=== PATIENT | female | born 1930 | race Caucasian/White ===

== ENCOUNTER 2017-08-01 09:02 | Day surgery (SDC) | payer OTHER ==
[~2017-08-01] VITALS: Ht 152.4 cm; Wt 64.6 kg
[~2017-08-01 09:02] MED LIST: AMIT50 PO; AMLO5; ASPI81CH PO; ATOR40TA; ATOR80 PO; CALCAVITDA PO; CEPH500; CIPR500; CIPR500 PO; CLOP75; DIAZIDE; DICL75ER; DOCU100 PO; FURO20 PO; HYDACE5 PO; INDERAL; ISOMON60ER; KEFLEX; LACT; LEVO750; LEVSOD100; LEVSOD100 PO; LISI20; LISI20 PO; LORA.5 PO; METO50; METO50ER PO; METR500; METR500 PO; NAPR500 PO; NITR.4SL; NITR.4SL SL; OMEP20ER; OMEP20ER PO; ONDA4 PO; ONDA4ODT MM; OXYACE5T PO; PROACE50 PO; PROP10; PROP40; RANI150; RESTORIL; RXONDA4ODT MM; SIMV5 PO; SYNTHROID; TEMA30; TEMA30 PO; TRIHYD253A; TRIHYD253B; ZANTAC; [UNRECOGNIZED DRUG - OTHER]; [UNRECOGNIZED DRUG - OTHER]
== END 2017-08-01 13:42 | disposition home or self-care (01) ==
LOC: ORSCSDS 09:02
DX: D50.9 Iron deficiency anemia, unspecified (principal); K44.9 Diaphragmatic hernia without obstruction or gangrene; L83 Acanthosis nigricans; D12.0 Benign neoplasm of cecum; D12.4 Benign neoplasm of descending colon; D12.8 Benign neoplasm of rectum; K64.4 Residual hemorrhoidal skin tags; K64.8 Other hemorrhoids; K57.30 Diverticulosis of large intestine without perforation or abscess without bleeding; I25.810 Atherosclerosis of coronary artery bypass graft(s) without angina pectoris; I10 Essential (primary) hypertension; E03.9 Hypothyroidism, unspecified; E78.00 Pure hypercholesterolemia, unspecified; Z79.82 Long term (current) use of aspirin; Z79.899 Other long term (current) drug therapy
CPT/HCPCS: 88305; 88342; J7120

== ENCOUNTER 2018-07-19 06:40 | Inpatient (IN) | payer OTHER ==
[~2018-07-19] VITALS: Ht 152.4 cm; Wt 66.3 kg
[~2018-07-19 06:40] MED LIST changes: -LEVSOD100 PO; +LEVSOD88 PO; -OMEP20ER PO; +OMEPRAZOLE MAGN20 MG PO
[2018-07-19 07:27] LABS: BASOPHILS ABSOLUTE AUTO 0.06 K/mm3 (0.00-0.23); BASOPHILS PERCENT AUTO 0 % (0-2); EOSINOPHILS ABSOLUTE AUTO 0.07 K/mm3 (0.00-0.68); EOSINOPHILS PERCENT AUTO 1 % (0-6); Hematocrit 40.6 % (33.0-51.0); Hemoglobin 13.2 g/dL (11.5-16.0); IMMATURE GRAN ABSOLUTE AUTO 0.05 K/mm3 (0.00-0.10); IMMATURE GRAN PERCENT AUTO 0 % (0-1); LYMPHOCYTES ABSOLUTE AUTO 0.37 K/mm3 (0.84-5.20); LYMPHOCYTES PERCENT AUTO 3 % (21-46); MONOCYTES ABSOLUTE AUTO 1.01 K/mm3 (0.16-1.47); MONOCYTES PERCENT AUTO 7 % (4-13); Mean Corpuscular HGB 30.3 pg (26.0-34.0); Mean Corpuscular HGB Conc 32.5 g/dL (31.5-36.5); Mean Corpuscular Volume 93 fL (80-100); Mean Platelet Volume 11.6 fL (9.1-12.4); NEUTROPHILS ABSOLUTE AUTO 13.16 K/mm3 (1.96-9.15); NEUTROPHILS PERCENT AUTO 89 % (41-73); Platelet Count 211 K/mm3 (150-400); RDW Coefficient Variation 15.3 % (11.7-14.2); RDW Standard Deviation 52.7 fL (35.1-46.3); Red Blood Cell Count 4.36 M/mm3 (3.80-5.20); White Blood Cell Count 14.72 K/mm3 (4.00-11.30)
[2018-07-19] MEDS ORDERED: Prinivil10 MG PO (07:36)
[2018-07-19] MEDS ORDERED: METO25 PO (07:37)
[2018-07-19] MEDS ORDERED: SIMV40 PO (07:37)
[2018-07-19 07:38] LABS: Albumin, Blood 2.7 g/dL (3.4-5.0); Albumin/Globulin Ratio 0.6 (0.8-1.8); Bilirubin, Total 0.9 mg/dL (0.1-1.0); Bun/Creatinine Ratio 17.7 (12.0-20.0); Calcium, Blood 7.9 mg/dL (8.5-10.1); Creatinine, Blood 1.41 mg/dL (0.40-1.00); Globulin, Blood 4.2 g/dL (2.2-4.0); Potassium, Blood 3.6 mmol/L (3.5-5.5); Total Protein, Blood 6.9 g/dL (6.4-8.2)
[2018-07-19 08:36] LABS: Source, Urine Catheter
[2018-07-19 08:39] LABS: Bilirubin, Urine Neg (Neg); Blood, Urine 3+ (Neg); Glucose Qualitative, Urine Neg (Neg); Ketones, Urine Neg (Neg); Leukocyte Esterase, Urine 3+ (Neg); Nitrite, Urine Pos (Neg); Protein, Urine 2+ (Neg); Specific Gravity, Urine 1.015 (1.003-1.022); Urobilinogen, Urine NORM (Normal)
[2018-07-19 08:52] LABS: Appearance, Urine Hazy (Clear); Color, Urine Yellow (P-Yellow)
[2018-07-19 08:53] LABS: Bacteria Few /hpf; Mucus Light (0-Heavy); Squamous Epithelial Cells Rare /hpf (Few); Transitional Epithelial Cells Few /hpf (0-Rare)
--- NOTE | 2018-07-19 10:43 | NUR ---
ADMIT NOTE- RECIEVED REPORT FROM ED. PT ARRIVED ON MEDICAL UNIT ALERT, ORIENTED AND INDEPENDENT. PT DOES NOT HAVE A LIST OF ACTIVE MEDICATIONS, CALLED [facility] SPOKE TO [facility] IN THE PHARMACY THEY ARE SENDING OVER AN ACTIVE MED LIST NOW. WILL CONT ADMIT PROCESS.
--- NOTE | 2018-07-19 18:21 | NUR ---
SHIFT SUMMARY- PT HAS SLEPT MOST OF THE TIME SINCE ADMIT SHE HAD ONE INCONTINENT EPISODE OF URINE, PT STATED HER PAIN WAS TOO BAD TO GET UP. MEDICATED WITH ZOFRAN AND TYLENOL AND THEN FENTANYL WHEN THE TYLENOL HAD NO EFFECT. PT STATED PAIN 5/10 AFTER THE FENTANYL. IVF STARTED AT THAT TIME AND IS CURRENTLY RUNNING AT 75ML/HR.
--- NOTE | 2018-07-19 21:29 | NUR ---
CRITICAL LAB VALUE: POSITIVE BLOOD CULTURE IN ONE BOTTLE: GRAM NEGATIVE BACILLI. REPORTED TO DR MIDDLETON, NO NEW ORDERS AT THIS TIME
--- NOTE | 2018-07-20 00:25 | NUR ---
Critical lab value: Second set of blood cultures, 1 bottle returned with Gram Negative Bacilli. MD already notified of previous results, discussed with Charge Nurse and since these results are identical to the previous Critical Lab Values during this shift, it is not necessary to report this to the MD again. Will continue to monitor.
[2018-07-20 05:03] LABS: BASOPHILS ABSOLUTE AUTO 0.05 K/mm3 (0.00-0.23); BASOPHILS PERCENT AUTO 0 % (0-2); EOSINOPHILS ABSOLUTE AUTO 0.01 K/mm3 (0.00-0.68); EOSINOPHILS PERCENT AUTO 0 % (0-6); Hematocrit 36.5 % (33.0-51.0); Hemoglobin 11.7 g/dL (11.5-16.0); IMMATURE GRAN PERCENT AUTO 1 % (0-1); LYMPHOCYTES ABSOLUTE AUTO 0.52 K/mm3 (0.84-5.20); LYMPHOCYTES PERCENT AUTO 3 % (21-46); MONOCYTES ABSOLUTE AUTO 1.56 K/mm3 (0.16-1.47); MONOCYTES PERCENT AUTO 9 % (4-13); Mean Corpuscular HGB 30.5 pg (26.0-34.0); Mean Corpuscular HGB Conc 32.1 g/dL (31.5-36.5); Mean Corpuscular Volume 95 fL (80-100); Mean Platelet Volume 11.9 fL (9.1-12.4); NEUTROPHILS ABSOLUTE AUTO 15.09 K/mm3 (1.96-9.15); NEUTROPHILS PERCENT AUTO 87 % (41-73); Platelet Count 193 K/mm3 (150-400); RDW Coefficient Variation 15.5 % (11.7-14.2); RDW Standard Deviation 54.8 fL (35.1-46.3); Red Blood Cell Count 3.84 M/mm3 (3.80-5.20); White Blood Cell Count 17.33 K/mm3 (4.00-11.30)
--- NOTE | 2018-07-20 05:04 | NUR ---
A/O, FEBRILE, 1PA TO BSC, WEAKER TODAY THAN YESTERDAY, NS @ 75 ML/HR, 2 L NC, 20G R FA, 20G L AC, POSTIVE UA, INCONT, VERY PAINFUL, CLEAR LIQUID DIET, LIVES WITH DAUGHTER
[2018-07-20 05:38] LABS: Albumin, Blood 2.2 g/dL (3.4-5.0); Albumin/Globulin Ratio 0.6 (0.8-1.8); Bilirubin, Total 0.4 mg/dL (0.1-1.0); Bun/Creatinine Ratio 16.5 (12.0-20.0); Calcium, Blood 7.6 mg/dL (8.5-10.1); Creatinine, Blood 1.27 mg/dL (0.40-1.00); Magnesium, Blood 1.6 mg/dL (1.6-2.4); Potassium, Blood 3.6 mmol/L (3.5-5.5); Total Protein, Blood 6.2 g/dL (6.4-8.2)
--- NOTE | 2018-07-20 10:19 | NUR ---
ASSUMED CARE OF PT- *LATE ENTRY* BEDSIDE REPORT COMPLETE WITH NIGHT RN CHRISTINA. PER REPORT PT HAD ONE EPISODE OF FEVER LAST NIGHT, MEDICATED WITH TYLENOL. MORNING VITALS SHOW TEMP 99.1 ADMINISTERED TYLENOL AGAIN RECHECK TEMP 98.3. PT STATED PAIN IS MANAGABLE AT 1000 RATED 2/10. PT STATES PAIN INCREASES WITH MOVEMENT.
--- NOTE | 2018-07-20 10:58 | NUR ---
ON NURSE ROUNDING PT STATED THAT HER STOMACH WAS STARTING TO FEEL "TOPSY TURVEY" PT REQUESTING NAUSEA MEDICATION, ALREADY ADMINISTERED IV ZOFRAN AT 0915. WILL SPEAK TO DR ABOUT OPTIONS.
[2018-07-20 14:03] LABS: Source, Urine Catheter
[2018-07-20 14:07] LABS: Appearance, Urine Clear (Clear); Bilirubin, Urine Neg (Neg); Blood, Urine 1+ (Neg); Color, Urine Yellow (P-Yellow); Glucose Qualitative, Urine Neg (Neg); Ketones, Urine Neg (Neg); Leukocyte Esterase, Urine 2+ (Neg); Nitrite, Urine Neg (Neg); Protein, Urine 2+ (Neg); Specific Gravity, Urine 1.015 (1.003-1.022); Urobilinogen, Urine NORM (Normal)
[2018-07-20 14:41] LABS: Bacteria Not Seen /hpf; Red Blood Cells, Urine Not Seen /hpf (0-2); Squamous Epithelial Cells Not Seen /hpf (Few)
--- NOTE | 2018-07-20 17:06 | NUR ---
AFTER CATHETER PLACEMENT PT FELT MUCH BETTER (PER PT STATEMENT) JUST RECENTLY SHE BEGAN TO C/O NAUSEA MEDICATED PER EMAR WITH ZOFRAN. PT STILL C/O SOME MILD NAUSEA, NO EMESIS AT THIS TIME. PT PAIN HAS RETURNED WELL WILL SEE ABOUT PAIN MEDS SHORTLY.
--- NOTE | 2018-07-20 18:36 | NUR ---
SHIFT SUMMARY- PT HAD A VALDERRAMA PLACED TODAY. C/O PAIN MEDICATED WITH IV FENTANYL AND TYLENOL. IV ZOFRAN GIVEN AND NOT EFFECTIVE. PT STATED SHE FEELS SO MISERABLE SHE "WANTS TO GO TO SLEEP AND NOT WAKE UP." CALLED DR BRAGG, NEW ORDER FOR IV PHENEGREN RECIEVED AND ADMINISTERED. PT THOUGHT SHE HAD A BM STAFF ROLLED HER REDNESS NOTED ON COCCYX, REPOSITIONED WITH A PILLOW UNDER RIGHT HIP.
--- NOTE | 2018-07-21 05:19 | NUR ---
VSS, AFEBRILE, A/O, VERY WEAK, SBA TO BSC, CHILLS AT TIMES, NS @ 75 ML/HR, 2L NC, L AC IS A FIELDSTART, 20G R FA, JANNIE FOR RETENTION. PMHX: CKD, HTN, CABG, THYROIDECTOMY, KAILYN. POSITIVE US, PAINFUL AND NAUSEATED. WATCH HER CLOSELY FOR POSSIBLE SUDDEN DECLINE.
--- NOTE | 2018-07-21 11:23 | NUR ---
PATIENT CARE ON 07/22/18 Patient gave permission for student to provide care on 07/22/18 from 0630 to 1200.
[2018-07-21 12:38] LABS: BASOPHILS ABSOLUTE AUTO 0.04 K/mm3 (0.00-0.23); BASOPHILS PERCENT AUTO 0 % (0-2); EOSINOPHILS ABSOLUTE AUTO 0.07 K/mm3 (0.00-0.68); EOSINOPHILS PERCENT AUTO 1 % (0-6); Hematocrit 39.3 % (33.0-51.0); Hemoglobin 12.7 g/dL (11.5-16.0); IMMATURE GRAN PERCENT AUTO 1 % (0-1); LYMPHOCYTES ABSOLUTE AUTO 1.23 K/mm3 (0.84-5.20); LYMPHOCYTES PERCENT AUTO 8 % (21-46); MONOCYTES ABSOLUTE AUTO 1.58 K/mm3 (0.16-1.47); MONOCYTES PERCENT AUTO 10 % (4-13); Mean Corpuscular HGB Conc 32.3 g/dL (31.5-36.5); Mean Corpuscular Volume 93 fL (80-100); Mean Platelet Volume 11.4 fL (9.1-12.4); NEUTROPHILS ABSOLUTE AUTO 12.38 K/mm3 (1.96-9.15); NEUTROPHILS PERCENT AUTO 80 % (41-73); Platelet Count 230 K/mm3 (150-400); RDW Coefficient Variation 15.6 % (11.7-14.2); RDW Standard Deviation 53.4 fL (35.1-46.3); Red Blood Cell Count 4.23 M/mm3 (3.80-5.20)
[2018-07-21 13:03] LABS: Albumin, Blood 2.1 g/dL (3.4-5.0); Albumin/Globulin Ratio 0.5 (0.8-1.8); Bilirubin, Total 0.3 mg/dL (0.1-1.0); Bun/Creatinine Ratio 15.8 (12.0-20.0); Calcium, Blood 7.8 mg/dL (8.5-10.1); Creatinine, Blood 1.01 mg/dL (0.40-1.00); Globulin, Blood 4.3 g/dL (2.2-4.0); Potassium, Blood 3.6 mmol/L (3.5-5.5); Total Protein, Blood 6.4 g/dL (6.4-8.2)
--- NOTE | 2018-07-21 19:58 | NUR ---
SHIFT SUMMARY: PT IS A&O. REPORT OF NAUSEA X2 T/O DAY; PT REPORTS RELIEF WITH IV ZOFRAN. SHE REFUSED PAIN MEDICATION T/O DAY; EDUCATED ON IMPORTANCE OF MOVEMENT AND OOB. STS SHE IS "TOO PAINFUL TO MOVE." THIS EVENING SHE WAS AGREEABLE TO TORADOL; AFTER DOSE GIVEN SHE APPEARS TO BE SLEEPING. NO S/SX OF DISCOMFORT. SHE REFUSED BREAKFAST AND DINNER. REPORT GIVEN TO SAMREEN BHAKTA.
[2018-07-22 04:58] LABS: BASOPHILS ABSOLUTE AUTO 0.04 K/mm3 (0.00-0.23); BASOPHILS PERCENT AUTO 0 % (0-2); EOSINOPHILS ABSOLUTE AUTO 0.35 K/mm3 (0.00-0.68); EOSINOPHILS PERCENT AUTO 3 % (0-6); Hematocrit 35.8 % (33.0-51.0); Hemoglobin 11.6 g/dL (11.5-16.0); IMMATURE GRAN ABSOLUTE AUTO 0.17 K/mm3 (0.00-0.10); IMMATURE GRAN PERCENT AUTO 2 % (0-1); LYMPHOCYTES ABSOLUTE AUTO 1.47 K/mm3 (0.84-5.20); LYMPHOCYTES PERCENT AUTO 13 % (21-46); MONOCYTES ABSOLUTE AUTO 1.24 K/mm3 (0.16-1.47); MONOCYTES PERCENT AUTO 11 % (4-13); Mean Corpuscular HGB 30.7 pg (26.0-34.0); Mean Corpuscular HGB Conc 32.4 g/dL (31.5-36.5); Mean Corpuscular Volume 95 fL (80-100); Mean Platelet Volume 11.6 fL (9.1-12.4); NEUTROPHILS ABSOLUTE AUTO 7.74 K/mm3 (1.96-9.15); NEUTROPHILS PERCENT AUTO 70 % (41-73); Platelet Count 220 K/mm3 (150-400); RDW Coefficient Variation 15.5 % (11.7-14.2); RDW Standard Deviation 54.1 fL (35.1-46.3); Red Blood Cell Count 3.78 M/mm3 (3.80-5.20); White Blood Cell Count 11.01 K/mm3 (4.00-11.30)
--- NOTE | 2018-07-22 05:40 | NUR ---
*SHIFT SUMMARY* PATIENT IS ALERT AND ORIENTED TO SELF AND PLACE. NO COMPLAINTS OF PAIN THROUGHOUT THE NIGHT. TORADOL ORDER CHANGED FROM SCHEDULED TO PRN SEE EMAR. JANNIE DRAINING WELL. NO BM THROUGHOUT THE NIGHT. CALL LIGHT WITHIN REACH, BED LOWERED AND LOCKED. NO NEW ACUTE CHANGES TO PATIENTS STATUS, SHE REPORTS SHE FEELS MUCH BETTER THAN YESTERDAY.
[2018-07-22 05:46] LABS: Albumin, Blood 1.8 g/dL (3.4-5.0); Albumin/Globulin Ratio 0.5 (0.8-1.8); Bilirubin, Total 0.3 mg/dL (0.1-1.0); Bun/Creatinine Ratio 19.1 (12.0-20.0); Calcium, Blood 7.5 mg/dL (8.5-10.1); Creatinine, Blood 1.1 mg/dL (0.40-1.00); Globulin, Blood 3.7 g/dL (2.2-4.0); Potassium, Blood 3.4 mmol/L (3.5-5.5); Total Protein, Blood 5.5 g/dL (6.4-8.2)
--- NOTE | 2018-07-22 08:41 | NUR ---
PT gave me verbal consent to help care for them on 07/23/18.
--- NOTE | 2018-07-22 16:56 | NUR ---
SHIFT SUMMARY PT HAS HAD NO ACUTE CHANGES THIS SHIFT, MEDICATED 1X FOR PAIN, PT HAS HAD NO OTHER COMPLAINTS AND APPEARS TO BE SLEEPING AT THIS TIME, WILL CONT TO MONITOR UNTIL REPORT GIVEN TO RAHEEM RN.
--- NOTE | 2018-07-23 02:25 | NUR ---
PT AWOKE FEELING VERY NAUSEATED. PT DID VOMIT TWICE. MEDICATED FOR NAUSEA ORDERED SEE EMAR. PT STATES SHE FEELS LIKE SHE HAS A FEVER. ENGRAVER SEALS AT BEDSIDE CHECKING VITAL SIGNS. TEMP 99.2 ALL OTHER VITALS WNL. PT STATES THE NAUSEA IS BETTER NOW BUT IS HAVING PAIN. WILL MEDICATE ORDERED.
--- NOTE | 2018-07-23 05:43 | NUR ---
*SHIFT SUMMARY* PATIENT IS ALERT AND ORIENTED YET CONFUSED AT TIMES. PATIENT HAS BEEN IN BED DURING MY SHIFT. PATIENT SLEPT MOST OF THE NIGHT. SHE WOKE UP AROUND 0200 AND HAD EMESIS, SEE PREVIOUS NOTE. PATIENT CONTINUED TO HAVE PAIN AFTER BEING MEDICATED PRIOR. PT WAS MEDICATED WITH FENTANYL ORDERED SEE EMAR. PATIENT SINCE THEN HAS BEEN ASLEEP AND LAYING ON LEFT SIDE. NO FURTHER COMPLAINTS OF NAUSEA OR PAIN. CALL LIGHT WITHIN REACH, BED LOWERED AND LOCKED. RESPIRATIONS EQUAL AND UNLABORED. VITAL SIGNS STABLE
[2018-07-23 08:32] LABS: BASOPHILS ABSOLUTE AUTO 0.06 K/mm3 (0.00-0.23); BASOPHILS PERCENT AUTO 1 % (0-2); EOSINOPHILS ABSOLUTE AUTO 0.29 K/mm3 (0.00-0.68); EOSINOPHILS PERCENT AUTO 2 % (0-6); Hematocrit 37.3 % (33.0-51.0); Hemoglobin 12.1 g/dL (11.5-16.0); IMMATURE GRAN ABSOLUTE AUTO 0.28 K/mm3 (0.00-0.10); IMMATURE GRAN PERCENT AUTO 2 % (0-1); LYMPHOCYTES ABSOLUTE AUTO 1.39 K/mm3 (0.84-5.20); LYMPHOCYTES PERCENT AUTO 11 % (21-46); MONOCYTES ABSOLUTE AUTO 1.04 K/mm3 (0.16-1.47); MONOCYTES PERCENT AUTO 8 % (4-13); Mean Corpuscular HGB 30.4 pg (26.0-34.0); Mean Corpuscular HGB Conc 32.4 g/dL (31.5-36.5); Mean Corpuscular Volume 94 fL (80-100); Mean Platelet Volume 11.5 fL (9.1-12.4); NEUTROPHILS ABSOLUTE AUTO 10.05 K/mm3 (1.96-9.15); NEUTROPHILS PERCENT AUTO 77 % (41-73); Platelet Count 255 K/mm3 (150-400); RDW Coefficient Variation 15.3 % (11.7-14.2); Red Blood Cell Count 3.98 M/mm3 (3.80-5.20); White Blood Cell Count 13.11 K/mm3 (4.00-11.30)
[2018-07-23 08:46] LABS: Albumin, Blood 1.9 g/dL (3.4-5.0); Anion Gap 8 mmol/L (6-16); Blood Urea Nitrogen 17 mg/dL (8-24); Bun/Creatinine Ratio 18.8 (12.0-20.0); CO2, Blood 24 mmol/L (21-32); Calcium, Blood 7.9 mg/dL (8.5-10.1); Chloride, Blood 112 mmol/L (98-108); Creatinine, Blood 0.91 mg/dL (0.40-1.00); Glomerular Filtration Rate >60 (60-); Glucose, Blood 93 mg/dL (70-99); Magnesium, Blood 1.4 mg/dL (1.6-2.4); Phosphorus, Blood 2.3 mg/dL (2.5-4.9); Potassium, Blood 3.3 mmol/L (3.5-5.5); Sodium, Blood 144 mmol/L (136-145)
--- NOTE | 2018-07-23 10:44 | NUR ---
I had my instructer Mervat Baer Rn help me administer heparin and Carol Diaz verified the dose of 5,000 unit/0.5 ml.
--- NOTE | 2018-07-23 16:24 | NUR ---
SHIFT SUMMARY PT HAS HAD NO ACUTE CHANGES THIS SHIFT, MEDICATED PER MAR FOR PAIN, NO OTHER COMPLAINTS. PT HAS BEEN UP TO BSC & RECLINER BOTH 1X THIS SHIFT, WAS ABLE TO TOLERATE CHAIR FOR 30 MINS. PT BEDRESTING AT THIS TIME W/FAMILY AT BEDSIDE, WILL CONT TO MONITOR UNTIL REPORT GIVEN TO NOC RN.
--- NOTE | 2018-07-24 05:01 | NUR ---
87 YEAR OLD FEMALE WITH SEPSIS AND PYLONEPHRITIS CONTINUES ON ANTIBIOTIC THERAPY TO TREAT. UP WITH 1 ASSIST TO BEDSIDE COMMODE AFTER VALDERRAMA DC. DENIES ACUTE PAIN WITH URINATION. CONTINUES ON CLEAR LIQUID DIET. DENIES NAUSEA. LIVES WITH DAUGHTER. WANTS TO DC HOME ON DC. TAKING ENSURE CLEAR. BOWELS ARE MOVING, BOWEL CARE CONTINUES
[2018-07-24 05:22] LABS: Hemoglobin 11.8 g/dL (11.5-16.0); Mean Corpuscular HGB 30.5 pg (26.0-34.0); Mean Corpuscular HGB Conc 32.8 g/dL (31.5-36.5); Mean Corpuscular Volume 93 fL (80-100); Mean Platelet Volume 12.1 fL (9.1-12.4); Platelet Count 277 K/mm3 (150-400); RDW Coefficient Variation 15.4 % (11.7-14.2); RDW Standard Deviation 52.5 fL (35.1-46.3); Red Blood Cell Count 3.87 M/mm3 (3.80-5.20); White Blood Cell Count 15.75 K/mm3 (4.00-11.30)
[2018-07-24 06:02] LABS: Albumin, Blood 1.9 g/dL (3.4-5.0); Anion Gap 8 mmol/L (6-16); Blood Urea Nitrogen 13 mg/dL (8-24); Bun/Creatinine Ratio 15.3 (12.0-20.0); CO2, Blood 24 mmol/L (21-32); Calcium, Blood 7.7 mg/dL (8.5-10.1); Chloride, Blood 109 mmol/L (98-108); Creatinine, Blood 0.85 mg/dL (0.40-1.00); Glomerular Filtration Rate >60 (60-); Glucose, Blood 108 mg/dL (70-99); Magnesium, Blood 2.1 mg/dL (1.6-2.4); Phosphorus, Blood 3.4 mg/dL (2.5-4.9); Potassium, Blood 3.6 mmol/L (3.5-5.5); Sodium, Blood 141 mmol/L (136-145)
--- NOTE | 2018-07-24 18:36 | NUR ---
PT. UP IN CHAIR AT THIS TIME. IS REPORTING NAUSEA ONCE AGAIN AND GAGGING. ZOFRAN GIVEN. DISCUSSED WITH DR. LAZARO THE POSSIBILITY HER HIATAL HERNIA MIGHT BE SLIDING ON HER. PT. SAID THE CL WERE NAUSEATING HER. EVEN AFTER ZOFRAN GIVEN PT. STILL GAGGING AND BELCHING. PT. DID GET UP AND AMBULATE IN SAEED WITH P.T. USING A FWW. TOLERATED WELL. PT. NOW REQUESTING PAIN MEDS, WILL GIVE HER TYLENOL.
--- NOTE | 2018-07-25 02:40 | NUR ---
elderly Female unable to void this shift bladder scan done 679 urine retaine and unable to void. DR Pagan updated and order to straight cath now and bladder scan 6 hours after scan put in . Will straight cath now. PT has pylonephritis and having rt flank pain .
--- NOTE | 2018-07-25 03:46 | NUR ---
straight cath for 650 ml clear yellow urine. pt had order to hold ultram so tylenol 650 mg po was given. tolerated st cath well expressed decreased pain and bladder pressure.
--- NOTE | 2018-07-25 08:36 | NUR ---
PATIENT DID NOT WANT TO EAT BREAKFAST THIS MORNING. TRAY WAS BROUGHT INTO ROOM AND PATIENT STATED SHE WAS NOT HUNGRY AND DID NOT WANT TO EAT. I ASKED PATIENT IF SHE WANTED ME TO LEAVE TRAY AND SHE DECLINED. TRAY WAS REMOVED FROM ROOM. PATIENT WAS INFORMED TO LET ME KNOW IF SHE GETS HUNGRY AND I WILL GET HER SOMETHING TO EAT. RN NOTIFIED.
[2018-07-25 09:55] LABS: Hemoglobin 11.6 g/dL (11.5-16.0); Mean Corpuscular HGB 30.7 pg (26.0-34.0); Mean Corpuscular HGB Conc 33.1 g/dL (31.5-36.5); Mean Corpuscular Volume 93 fL (80-100); Mean Platelet Volume 11.3 fL (9.1-12.4); NRBC ABSOLUTE 0.02 K/mm3 (0.00-0.02); NRBC Auto 0.1 /100 WBC (0.0-0.2); Platelet Count 322 K/mm3 (150-400); RDW Coefficient Variation 15.4 % (11.7-14.2); Red Blood Cell Count 3.78 M/mm3 (3.80-5.20); White Blood Cell Count 14.51 K/mm3 (4.00-11.30)
[2018-07-25 10:11] LABS: Anion Gap 8 mmol/L (6-16); Blood Urea Nitrogen 13 mg/dL (8-24); Bun/Creatinine Ratio 14.7 (12.0-20.0); CO2, Blood 26 mmol/L (21-32); Calcium, Blood 7.9 mg/dL (8.5-10.1); Chloride, Blood 108 mmol/L (98-108); Creatinine, Blood 0.88 mg/dL (0.40-1.00); Glomerular Filtration Rate >60 (60-); Glucose, Blood 96 mg/dL (70-99); Potassium, Blood 3.4 mmol/L (3.5-5.5); Sodium, Blood 142 mmol/L (136-145)
[2018-07-25 10:39] LABS: BASOPHILS PERCENT MAN 0 % (0-2); EOSINOPHILS ABSOLUTE MAN 0.43 K/mm3 (0.00-0.68); EOSINOPHILS PERCENT MAN 3 % (0-6); LYMPHOCYTES ABSOLUTE MAN 1.01 K/mm3 (0.84-5.20); LYMPHOCYTES PERCENT MAN 7 % (21-46); METAMYELOCYTE ABSOLUTE MAN 0.43 K/mm3 (0.00-0.00); METAMYELOCYTE PERCENT MAN 3 % (0-0); MONOCYTES ABSOLUTE MAN 1.16 K/mm3 (0.16-1.47); MONOCYTES PERCENT MAN 8 % (4-13); NEUTROPHILS ABSOLUTE MAN 11.46 K/mm3 (1.96-9.15); SEG NEUTROPHILS PERCENT MAN 79 % (41-73); TOTAL CELLS COUNTED 100
[2018-07-25 12:05] LABS: Source, Urine Catheter
[2018-07-25 12:15] LABS: Bilirubin, Urine Neg (Neg); Blood, Urine 1+ (Neg); Glucose Qualitative, Urine Neg (Neg); Ketones, Urine 1+ (Neg); Leukocyte Esterase, Urine Neg (Neg); Nitrite, Urine Neg (Neg); Protein, Urine Neg (Neg); Specific Gravity, Urine 1.015 (1.003-1.022); Urobilinogen, Urine NORM (Normal)
[2018-07-25 12:49] LABS: Appearance, Urine Clear (Clear); Color, Urine Yellow (P-Yellow)
[2018-07-25 13:29] LABS: Bacteria Few /hpf; Red Blood Cells, Urine 0-2 /hpf (0-2); Squamous Epithelial Cells Rare /hpf (Few)
--- NOTE | 2018-07-25 18:31 | NUR ---
SHIFT SUMMARY- PT C/O R SIDED PAIN AND NAUSEA. MEDS GIVEN PER EMAR. DENIES SOB. RESP E/U ON RA. GI CONSULTED AND DR. LIM IN TO SEE PT TODAY. US OF ABDOMEN ORDERED. VALDERRAMA CATH PLACED. PATENT AND DRAINING CLEAR PALE YELLOW URINE. FAMILY IN TO VISIT PT. NO OTHER SIGNIFICANT CHANGES THIS SHIFT.
[2018-07-26 05:11] LABS: Hematocrit 36.5 % (33.0-51.0); Hemoglobin 11.9 g/dL (11.5-16.0); Mean Corpuscular HGB 30.1 pg (26.0-34.0); Mean Corpuscular HGB Conc 32.6 g/dL (31.5-36.5); Mean Corpuscular Volume 92 fL (80-100); Mean Platelet Volume 11.6 fL (9.1-12.4); Platelet Count 362 K/mm3 (150-400); RDW Coefficient Variation 15.4 % (11.7-14.2); RDW Standard Deviation 51.8 fL (35.1-46.3); Red Blood Cell Count 3.95 M/mm3 (3.80-5.20); White Blood Cell Count 14.26 K/mm3 (4.00-11.30)
--- NOTE | 2018-07-26 05:36 | NUR ---
SHIFT SUMMARY PT SLEPT WELL T/O NIGHT, WOKE UP AROUND 0130 STATING SHE FELT CONFUSED BUT WAS AOX4. SALSA DANCE INSTRUCTOR INFORMED ME PT HAD 1 YELLOW, FOUL SMELLING, LIQUID BM BUT HAS NO FURTHER BM SINCE. ABD IS TENDER TO PALPATION & PAINFUL IN UPPER QUADRANTS RAIDIATING TO SIDES. PT DENIES SOB & N/V. PT REPORTED 5/10 LOWER BACK PAIN THIS AM & WAS MEDICATED W/TYLENOL PER ORDERS. JANNIE IS PATENT & DRAINING. CALL LIGHT IS IN REACH & BED IS IN LOWEST POSITION.
[2018-07-26 05:44] LABS: Bun/Creatinine Ratio 12.6 (12.0-20.0); Calcium, Blood 7.9 mg/dL (8.5-10.1); Creatinine, Blood 0.96 mg/dL (0.40-1.00); Potassium, Blood 3.7 mmol/L (3.5-5.5)
[2018-07-26 05:49] LABS: BASOPHILS PERCENT MAN 0 % (0-2); EOSINOPHILS ABSOLUTE MAN 0.14 K/mm3 (0.00-0.68); EOSINOPHILS PERCENT MAN 1 % (0-6); LYMPHOCYTES ABSOLUTE MAN 1.85 K/mm3 (0.84-5.20); LYMPHOCYTES PERCENT MAN 13 % (21-46); MONOCYTES ABSOLUTE MAN 1.28 K/mm3 (0.16-1.47); MONOCYTES PERCENT MAN 9 % (4-13); NEUTROPHILS ABSOLUTE MAN 10.98 K/mm3 (1.96-9.15); SEG NEUTROPHILS PERCENT MAN 77 % (41-73); TOTAL CELLS COUNTED 100
--- NOTE | 2018-07-26 14:53 | NUR ---
REPORT GIVEN TO CIRA JEAN-BAPTISTE AT 1155 WHO ASSUMED CARE AT THAT TIME
--- NOTE | 2018-07-26 17:04 | NUR ---
SUMMARY ASSUMED PT CARE APPROX NOON TODAY. SHE IS A/O X3, SHE STATE R HIP/SIDE PAIN, DR LAZARO ORDER TYLENOL SCHEDULED FOR PAIN RELIEF/CONTROL. KPAD PROVIDED PRN. ORDER XRAY R HIP/PELVIS. PT HAS INCREASED PAIN WITH WT BRG RLE. DX PYELONEPHRITIS, IV ANTIBX CONTINUE. VALDERRAMA CATH PATENT, AVELINO CLEAR LIGHT YELLOW URINE. WBC ELEVATED HOWEVER IMPROVING @ 14.2, VSS NO FEVER TODAY. SHE IS PLEASANT/COOPERATIVE. MULT SUPPORTIVE FAMILY @ BEDSIDE T/O DAY.
--- NOTE | 2018-07-27 04:23 | NUR ---
SHIFT SUMMARY PT SLEPT WELL T/O NIGHT. NO ACUTE CHANGES THIS SHIFT. VSS. AOX4, SLOW TO RESPOND. DENIES N/V OR SOB. DENIES ABD TENDERNESS W/PALPATION. REPORTS 5/10 R HIP/SIDE PAIN, MEDICATED 1X W/PRN TYLENOL & 1X W/SCHEDULED TYLENOL PER ORDERS. JANNIE IS PATENT & DRAINING CLEAR LIGHT YELLOW URINE. PT HAD 1 SMALL BROWN FORMED BM. CALL LIGHT IS IN REACH & I WILL CONT TO MONITOR PT UNTIL DAY SHIFT RN ASSUMES CARE.
[2018-07-27 05:01] LABS: Hematocrit 37.8 % (33.0-51.0); Hemoglobin 12.4 g/dL (11.5-16.0); Mean Corpuscular HGB 30.6 pg (26.0-34.0); Mean Corpuscular HGB Conc 32.8 g/dL (31.5-36.5); Mean Corpuscular Volume 93 fL (80-100); Mean Platelet Volume 11.7 fL (9.1-12.4); NRBC ABSOLUTE 0.02 K/mm3 (0.00-0.02); NRBC Auto 0.2 /100 WBC (0.0-0.2); Platelet Count 408 K/mm3 (150-400); RDW Coefficient Variation 15.4 % (11.7-14.2); RDW Standard Deviation 52.6 fL (35.1-46.3); Red Blood Cell Count 4.05 M/mm3 (3.80-5.20); White Blood Cell Count 12.12 K/mm3 (4.00-11.30)
[2018-07-27 05:17] LABS: Anion Gap 8 mmol/L (6-16); Blood Urea Nitrogen 15 mg/dL (8-24); CO2, Blood 29 mmol/L (21-32); Chloride, Blood 104 mmol/L (98-108); Creatinine, Blood 0.88 mg/dL (0.40-1.00); Glomerular Filtration Rate >60 (60-); Glucose, Blood 119 mg/dL (70-99); Potassium, Blood 3.6 mmol/L (3.5-5.5); Sodium, Blood 141 mmol/L (136-145)
--- NOTE | 2018-07-27 17:41 | NUR ---
PATIENT DID NOT WANT TO EAT DINNER THIS SHIFT, PATIENT WAS NOT FEELING WELL EARLIER AND DID NOT FEEL LIKE EATING. I OFFERED JELLO, SOUP AND OTHER LIGHT FOODS AND PATIENT DECLINED. TRAY WAS REMOVED. RN NOTIFIED.
--- NOTE | 2018-07-27 19:37 | NUR ---
summary PT CONTINUED TO HAVE PAIN/DISCOMFORT R HIP/SIDE, DR REVIEW XRAY RESULTS, ORDER LIDOCAINE PATCH. PT STATE BETTER RELIEF THIS AM IMMEDIATELY AFTER PLACED HOWEVER LATER AFTER SHE HAD BEEN UP IN CHAIR APPROX 1/2 HR SHE BECAME VERY PAINFUL AGAIN, ASSISTED BACK TO BED & HAS DECLINED UP SINCE, STATE TOO MUCH DISCOMFORT WHEN UP. SCHEDULED & PRN TYLENOL GIVEN GET PAIN BACK UNDER CONTROL. POOR APPETITE CONTINUES, DR ORDER CALORIE COUNT, RESPIRATORY TECHNICIAN IN TO SEE PT TO ASSIST WITH MENU. PT HAD NAUSEA & EMESIS AFTER LUNCH, PRN ZOFRAN GIVEN. SHE DECLINED DINNER, STATE NOT READY TO TRY & EAT YET AFTER NAUSEA THIS AFTERNOON. CLINIMIX CONTINUES @ 75 ML/HR. VSS.
[2018-07-28 05:11] LABS: Hematocrit 39.3 % (33.0-51.0); Hemoglobin 12.7 g/dL (11.5-16.0); Mean Corpuscular HGB 30.2 pg (26.0-34.0); Mean Corpuscular HGB Conc 32.3 g/dL (31.5-36.5); Mean Corpuscular Volume 93 fL (80-100); Mean Platelet Volume 11.8 fL (9.1-12.4); Platelet Count 461 K/mm3 (150-400); RDW Coefficient Variation 15.7 % (11.7-14.2); RDW Standard Deviation 52.7 fL (35.1-46.3); Red Blood Cell Count 4.21 M/mm3 (3.80-5.20); White Blood Cell Count 13.86 K/mm3 (4.00-11.30)
[2018-07-28 05:40] LABS: Albumin, Blood 2.2 g/dL (3.4-5.0); Anion Gap 7 mmol/L (6-16); Blood Urea Nitrogen 18 mg/dL (8-24); CO2, Blood 29 mmol/L (21-32); Calcium, Blood 8.1 mg/dL (8.5-10.1); Chloride, Blood 105 mmol/L (98-108); Glucose, Blood 116 mg/dL (70-99); Phosphorus, Blood 3.3 mg/dL (2.5-4.9); Potassium, Blood 3.7 mmol/L (3.5-5.5); Sodium, Blood 141 mmol/L (136-145)
[2018-07-28 06:53] LABS: Bun/Creatinine Ratio 23.1 (12.0-20.0); Creatinine, Blood 0.78 mg/dL (0.40-1.00); Glomerular Filtration Rate >60 (60-)
--- NOTE | 2018-07-28 07:41 | NUR ---
SHIFT SUMMARY PT HAS BEEN AWAKE ON/OFF T/O NIGHT. AOX3, FORGETFUL @TIMES. REPORTS 6/10 PAIN IN R. SIDE, MEDICATED W/TYLENOL PER ORDERS. PT REPORTED NAUSEA THIS AM AROUND 0200, MEDICATED W/ZOFRAN PER ORDERS. PT STILL REPORTING FURTHER NAUSEA THIS AM & WAS MEDICATED W/PHENERGAN AROUND 0530 PER ORDERS. PT STATES SHE NO LONGER FEELS NAUSEOUS. PT DENIES SOB. VSS. VALDERRAMA PATENT & DRAINING. CALL LIGHT IN REACH.
--- NOTE | 2018-07-28 12:24 | NUR ---
0530 PT RECIEVED DOSE OF PHENERGAN AFTER C/O NAUSEA TO NOC SHIFT RN. 0715 DURING MORNING ROUNDS NOC RN NOTED THAT PT APPEARED MORE CONFUSED THAN PREVIOUSLY. 0745 PT CONTINUES WITH CONFUSION, ALERT, ORIENTATED TO SELF ONLY, PT WITH DIFFICULTY "FINDING WORDS." 1015 PT'S CONFUSION HAS CLEARED, A&OX4, SPEAKING CLEARLY AND CONCISELY. 1200 FAMILY AT BEDSIDE. ANSWERED ALL QUESTIONS TO THIER SATISFACTION.
--- NOTE | 2018-07-28 16:20 | NUR ---
SHIFT SUMMARY. PT'S COGNITION HAS BEEN AT BASELINE SINCE IT CLEARED AT 1015. PHENERGAN HAS BEEN D/C'D TO PREVENT FURTHER CONFUSION. CLINIMIX HAS BEEN D/C'D. PT HAS DENIED NAUSEA THROUGHOUT SHIFT. PT HAS INCREASED MEAL AND FLUID INTAKE THIS SHIFT THUS FAR. PT REPORTS PAIN TO BACK AND R HIP, DENIES ABDOMINAL PAIN. LIDOCAINE PATHES APPLIED TO R HIP AND BACK, PT RECIEVING SCHEDULED APAP. PT REPORTS PAIN HAS IMPROVED WHEN COMPARED TO YESTERDAY, ALTHOUGH PAIN INCREASES SIGNIFICANTLY WITH SITTING UPRIGHT, MOVEMENT, TRANSFERS AND AMBULATION. THIS RN AND DR. LAZARO IN ROOM AND OBSERVED PHYSICAL THERAPY TRANSFERING PT FROM CHAIR TO BED WITH FWW. PT'S PAIN APPEARED TO IMPAIR PT'S GAIT AND LIMIT ACTIVITY TOLERANCE. FAMILY REPORTS THAT THEY WILL BE GOING OUT OF TOWN ON VACATION OUT OF STATE ON SATURDAY AND NOBODY WILL BE ABLE TO BE WITH PT AT HOME. SS AWARE.
[2018-07-29 05:37] LABS: BASOPHILS PERCENT AUTO 1 % (0-2); EOSINOPHILS ABSOLUTE AUTO 0.55 K/mm3 (0.00-0.68); EOSINOPHILS PERCENT AUTO 4 % (0-6); Hematocrit 38.4 % (33.0-51.0); Hemoglobin 12.5 g/dL (11.5-16.0); IMMATURE GRAN ABSOLUTE AUTO 0.35 K/mm3 (0.00-0.10); IMMATURE GRAN PERCENT AUTO 3 % (0-1); LYMPHOCYTES ABSOLUTE AUTO 2.47 K/mm3 (0.84-5.20); LYMPHOCYTES PERCENT AUTO 18 % (21-46); MONOCYTES ABSOLUTE AUTO 1.08 K/mm3 (0.16-1.47); MONOCYTES PERCENT AUTO 8 % (4-13); Mean Corpuscular HGB 30.7 pg (26.0-34.0); Mean Corpuscular HGB Conc 32.6 g/dL (31.5-36.5); Mean Corpuscular Volume 94 fL (80-100); Mean Platelet Volume 12.1 fL (9.1-12.4); NEUTROPHILS ABSOLUTE AUTO 9.56 K/mm3 (1.96-9.15); NEUTROPHILS PERCENT AUTO 68 % (41-73); Platelet Count 478 K/mm3 (150-400); RDW Coefficient Variation 16.1 % (11.7-14.2); RDW Standard Deviation 54.8 fL (35.1-46.3); Red Blood Cell Count 4.07 M/mm3 (3.80-5.20); White Blood Cell Count 14.11 K/mm3 (4.00-11.30)
[2018-07-29 05:54] LABS: Anion Gap 8 mmol/L (6-16); Blood Urea Nitrogen 17 mg/dL (8-24); Bun/Creatinine Ratio 19.1 (12.0-20.0); CO2, Blood 28 mmol/L (21-32); Calcium, Blood 8.4 mg/dL (8.5-10.1); Chloride, Blood 103 mmol/L (98-108); Creatinine, Blood 0.89 mg/dL (0.40-1.00); Glomerular Filtration Rate >60 (60-); Glucose, Blood 91 mg/dL (70-99); Potassium, Blood 3.8 mmol/L (3.5-5.5); Sodium, Blood 139 mmol/L (136-145)
--- NOTE | 2018-07-29 06:47 | NUR ---
07/29/18 0630 VITALS STABLE. POOR INTAKE EVEN WHEN ENCOURAGED TO DRINK AND EAT. STATES SHE IS "NOT HUNGRY". VALDERRAMA PATENT AND QS OUTPUT. TURNS SELF AND ALSO ASSISTED PRN. SEE MAR FOR MEDS GIVEN.
--- NOTE | 2018-07-29 10:47 | NUR ---
PT TRANSFERED TO FROM BED TO CHAIR WITH FWW AND GB FOR BREAKFAST. PT DID NOT TOLERATE SITTING IN CHAIR FOR MORE THAN 5 MINUTES. PAIN TO R HIP EXACERBATED WHEN PT IS SITTING AT 75-90 DEGREES. PT ASSISTED BACK TO BED WITH FWW AND GB, PT VERY PAINFUL WITH STANDING AND ONLY SMALL SMALL STEPS TAKEN, PT REQUIRED DIRECTION WITH EACH STEP. SCHEDULED PAIN MEDICATION GIVEN, INCLUDING TRAMODOL, APAP, AND LIDOCAINE PATCHES. PT SLEEPING AFTERWARDS. NO BREAKFAST INTAKE.
--- NOTE | 2018-07-29 18:47 | NUR ---
SHIFT SUMMARY. PT CONTINUED WITH R HIP TO BE PAINFUL WITH REPOSITIONING, INCLUDING RAISING AND LOWERING HOB. PT WITH ONE EPISODE OF NAUSEA WITH WRENCHING WITHOUT EMESIS WHEN PAIN EXACERBATED WITH SITTING IN CHAIR THIS AM. TRAMODOL SCHEDULE CHANGED. PT IS UNAWARE IF PAIN MEDICATION IS HELPFUL, IT MOSTLY BECOMES EXACERBATED WITH MOVEMENT. PENDING ORTHO RECOMENDATION. NO SOB.
[2018-07-30 05:12] LABS: BASOPHILS ABSOLUTE AUTO 0.13 K/mm3 (0.00-0.23); BASOPHILS PERCENT AUTO 1 % (0-2); EOSINOPHILS ABSOLUTE AUTO 0.51 K/mm3 (0.00-0.68); EOSINOPHILS PERCENT AUTO 4 % (0-6); Hematocrit 39.9 % (33.0-51.0); Hemoglobin 12.9 g/dL (11.5-16.0); IMMATURE GRAN ABSOLUTE AUTO 0.22 K/mm3 (0.00-0.10); IMMATURE GRAN PERCENT AUTO 2 % (0-1); LYMPHOCYTES ABSOLUTE AUTO 1.95 K/mm3 (0.84-5.20); LYMPHOCYTES PERCENT AUTO 15 % (21-46); MONOCYTES ABSOLUTE AUTO 0.98 K/mm3 (0.16-1.47); MONOCYTES PERCENT AUTO 7 % (4-13); Mean Corpuscular HGB Conc 32.3 g/dL (31.5-36.5); Mean Corpuscular Volume 93 fL (80-100); Mean Platelet Volume 11.8 fL (9.1-12.4); NEUTROPHILS ABSOLUTE AUTO 9.42 K/mm3 (1.96-9.15); NEUTROPHILS PERCENT AUTO 71 % (41-73); Platelet Count 514 K/mm3 (150-400); RDW Coefficient Variation 16.3 % (11.7-14.2); RDW Standard Deviation 53.7 fL (35.1-46.3); White Blood Cell Count 13.21 K/mm3 (4.00-11.30)
[2018-07-30 05:41] LABS: Albumin, Blood 2.4 g/dL (3.4-5.0); Anion Gap 7 mmol/L (6-16); Blood Urea Nitrogen 16 mg/dL (8-24); Bun/Creatinine Ratio 16.6 (12.0-20.0); CO2, Blood 29 mmol/L (21-32); Calcium, Blood 8.6 mg/dL (8.5-10.1); Chloride, Blood 104 mmol/L (98-108); Creatinine, Blood 0.96 mg/dL (0.40-1.00); Glomerular Filtration Rate 58 (60-); Glucose, Blood 94 mg/dL (70-99); Phosphorus, Blood 2.8 mg/dL (2.5-4.9); Potassium, Blood 3.9 mmol/L (3.5-5.5); Sodium, Blood 140 mmol/L (136-145)
--- NOTE | 2018-07-30 06:37 | NUR ---
07/30/18 0600 PT WAS AWAKE ON AND OFF THIS SHIFT. MEDICATED EARLIER THIS SHIFT FOR PAIN IN RT HIP. ENCOURAGED ORAL INTAKE BUT MAINLY "JUST WANT WATER." REPOSITIONED EARLIER AND THEN VITALS TAKEN. BP WAS UP BUT PT WAS UNCOMFORTABLE. WILL RE-EVALUATE LATER.
--- NOTE | 2018-07-30 18:39 | NUR ---
PT A/OX3, PLEASANT AND COOPERATIVE, THIS AM THE PT APPEARED TO BE HAVEING SOME MILD - MODRERATE SPEECH ASPHASIA, HOWEVER WHEN THE DOCTOR ASSESSED THIS AM THE PT APPEARED TO HAVE CLEARED, AND FOR MOST OF THE DAY THE PT APPEARED TO SPEAK APPROPRIATLY WITH SHORT INTERMITEN TIMES OF TRYING TO FIND WORDS, THE PT HAD MULTIPLE FAMILY MEMBERS IN TO SEE HER TODAY, THE PT CONTINUED TO C/O RIGHT SIDED PAIN, AND WAS MEDICATED PAIN SHE REQUESTED UNDER THE DIRECTION OF SOME OF THE FAMILY MEMEBERS, THE PT WORKED WITH THE PHYSICAL THERAPIST TODAY HOWEVER WAS UNABLE TO AMBULATE, CALL, LIGHT IN REACH, BED IN THE LOW POSITION FOR SAFTY, THE PT APPEARS TO BE BREATHING EASILY ON RA
--- NOTE | 2018-07-31 05:12 | NUR ---
SHIFT SUMMARY PT RESTING QUIETLY AT START OF SHIFT. WOKE EASILY FOR CARE DURING SHIFT REPORT, BUT DEMONSTATED EXPRESSIVE APHAGIA WHEN ASKING HER QUESTIONS. PER REPORT FROM DAY RN, PT HAD DONE THE SAME THING EARLIER AND THEREFORE NOTIFIED . HOWEVER, DID NOT NOTICE ANY SPEECH DIFFICULTY BY THE TIME SHE CAME TO ASSESS PT. PER REPORT, PT LIVES AT HOME WITH DAUGHTER AND HAS BEEN BEDBOUND AND HAD NO APPETITE. PT HAS BEEN UNABLE TO TOLERATE GETTING UP TO CHAIR WHILE HERE D/T PAIN IN HER BACK. LIDODERM PATCHES STARTED; REMOVED AT HS PER PROTOCOL. PT HAD DENIED PAIN AT HS WHEN ASKED, BUT THEN GRIMACED WHEN WE BOOSTED HER UP IN BED. MEDS ADMINISTERED WHOLE IN PUDDING; TOLERATED WELL. VALDERRAMA TO GRAVITY; PATENT. PT UNCLEAR TO WHEN CATHETER PLACED. PER REPORT, PT RETAINING URINE D/T OBSTRUCTION. PT VERY WEAK AND DECONDITIONED. IS UNABLE TO FOLLOW INSTRUCTIONS WELL OR TO COMMUNICATE HER NEEDS ACCURATELY. CALL LT IN REACH, BUT PT DOES NOT REMEMBER TO USE IT. WILL MONITOR.
[2018-07-31 05:22] LABS: BASOPHILS PERCENT AUTO 1 % (0-2); EOSINOPHILS ABSOLUTE AUTO 0.42 K/mm3 (0.00-0.68); EOSINOPHILS PERCENT AUTO 4 % (0-6); Hematocrit 40.6 % (33.0-51.0); Hemoglobin 13.1 g/dL (11.5-16.0); IMMATURE GRAN ABSOLUTE AUTO 0.15 K/mm3 (0.00-0.10); IMMATURE GRAN PERCENT AUTO 1 % (0-1); LYMPHOCYTES ABSOLUTE AUTO 1.55 K/mm3 (0.84-5.20); LYMPHOCYTES PERCENT AUTO 15 % (21-46); MONOCYTES ABSOLUTE AUTO 0.71 K/mm3 (0.16-1.47); MONOCYTES PERCENT AUTO 7 % (4-13); Mean Corpuscular HGB Conc 32.3 g/dL (31.5-36.5); Mean Corpuscular Volume 93 fL (80-100); Mean Platelet Volume 11.8 fL (9.1-12.4); NEUTROPHILS ABSOLUTE AUTO 7.49 K/mm3 (1.96-9.15); NEUTROPHILS PERCENT AUTO 72 % (41-73); Platelet Count 537 K/mm3 (150-400); RDW Coefficient Variation 16.2 % (11.7-14.2); RDW Standard Deviation 54.4 fL (35.1-46.3); Red Blood Cell Count 4.37 M/mm3 (3.80-5.20); White Blood Cell Count 10.42 K/mm3 (4.00-11.30)
[2018-07-31 05:51] LABS: Albumin, Blood 2.5 g/dL (3.4-5.0); Anion Gap 7 mmol/L (6-16); Blood Urea Nitrogen 13 mg/dL (8-24); Bun/Creatinine Ratio 12.6 (12.0-20.0); CO2, Blood 28 mmol/L (21-32); Calcium, Blood 8.8 mg/dL (8.5-10.1); Chloride, Blood 104 mmol/L (98-108); Creatinine, Blood 1.03 mg/dL (0.40-1.00); Glomerular Filtration Rate 54 (60-); Glucose, Blood 101 mg/dL (70-99); Potassium, Blood 3.8 mmol/L (3.5-5.5); Sodium, Blood 139 mmol/L (136-145)
--- NOTE | 2018-07-31 16:21 | NUR ---
PT A/OX3, PLEASANT AND COOPERATIVE, THE PT IS [place], THE PT HAD SOME MILD SPEECH ASPHAGIA TODAY INTERMIITENTLY, TODAY THE PT WAS ABLE TO GET UP WITH THE PHYSICAL THERAPIST AND AMBULATE INTO THE SAEED. PT DID HAVE SOME PAIN WITH THE TRANSFER, THE PT WAS MEDICATED FOR PAIN T/O THE SCHEDULED AND PRN, LIDOERM PATCHES APPLIED TO THE RIGHT SIDE LOW ABD AND HIP AREA, PT REPORTED THAT HER PAIN WAS A LITTLE BETTER TODAY COMPARED TO YESTERDAY, MULTIPLE FAMILY AT THE BEDSIDE TODAY, CALL LIGHT IN REACH BED IN THE LOW POSITION
--- NOTE | 2018-08-01 03:36 | NUR ---
SHIFT SUMMARY NO ACUTE CHANGES TO PRESENT THIS SHIFT. PT'S GRANDAUGHTERS IN TO SEE HER DURING BS REPORT TONIGHT, STAYING TO VISIT UNTIL HS MEDS GIVEN. PT PULLING UP GOWN ON R HIP TRYING TO SAY SOMETHING. GRANDAUGHTER THEN ASKED SHE IF WANTED SOMETHING FOR PAIN. PT ANS'D "YES". PT STRUGGLES FOR WORDS MOST OF THE TIME. PT HAS SOME BASELINE DEMENTIA WELL EXPRESSIVE APHAGIA. DEMENTIA HAS SOME EFFECT ON MOBILITY, PT IS UNSURE WHAT SHE NEEDS TO DO AND HOW TO GET THERE. POSSIBLE D/C TO SNF FOR REHAB, PER INSURANCE. OTHERWISE FAMILY TO TAKE PT BACK HOME. PT HAS VERY POOR PO INTAKE. HAVE OFFERED MANY CHOICES, BUT DECLINES THEM ALL. FAMILY ATTEMPTED TO OFFER PT SOMETHING WELL AND PT REFUSED. POSITIONED FOR COMFORT AT HS. WAKES EASILY FOR CARE. WILL MONITOR.
--- NOTE | 2018-08-01 17:17 | NUR ---
[facility] AT 0621.
[2018-08-01] MEDS ORDERED: BISA10S PR (17:41)
[2018-08-01] MEDS ORDERED: ACETAMINOPHEN500 MG PO (17:41)
--- NOTE | 2018-08-01 17:41 | NUR ---
IV REMOVED. PT D/C WITH TRANSPORT VIA WHEELCHAIR AT 1742.
[2018-08-01] MEDS ORDERED: Docusate Sodiu100 M1 PO (17:42)
[2018-08-01] MEDS ORDERED: SENN187 PO (17:42)
[2018-08-01] MEDS ORDERED: LIDOCAINE1 EACH TOP (17:42)
[2018-08-01] MEDS ORDERED: TRAM50 PO (17:43)
[2018-08-01] MEDS ORDERED: Sucralfate1 GM/10 ML PO (17:43)
[2018-08-01] MEDS ORDERED: CEFTR1PB IV (17:44)
== END 2018-08-01 17:45 | DRG 872 ==
LOC: ER 06:40 → MEDS 09:53 → ENPENDDIS 08-01 16:55 → MEDS 08-01 17:45
PROVIDERS: Family Medicine; Internal Medicine; ADMIT Internal Medicine
DX: A41.51 Sepsis due to Escherichia coli [E. coli] (principal); N39.0 Urinary tract infection, site not specified; N12 Tubulo-interstitial nephritis, not specified as acute or chronic; N17.9 Acute kidney failure, unspecified; R65.20 Severe sepsis without septic shock; M51.36 Other intervertebral disc degeneration, lumbar region; F03.90 Unspecified dementia, unspecified severity, without behavioral disturbance, psychotic disturbance, mood disturbance, and anxiety; E03.9 Hypothyroidism, unspecified; I25.10 Atherosclerotic heart disease of native coronary artery without angina pectoris; E87.6 Hypokalemia; N18.3 Chronic kidney disease, stage 3 (moderate); I12.9 Hypertensive chronic kidney disease with stage 1 through stage 4 chronic kidney disease, or unspecified chronic kidney disease; K21.9 Gastro-esophageal reflux disease without esophagitis; E78.5 Hyperlipidemia, unspecified; T42.6X5A Adverse effect of other antiepileptic and sedative-hypnotic drugs, initial encounter; Y92.230 Patient room in hospital as the place of occurrence of the external cause; E83.39 Other disorders of phosphorus metabolism; E83.42 Hypomagnesemia; K59.00 Constipation, unspecified; B96.1 Klebsiella pneumoniae [K. pneumoniae] as the cause of diseases classified elsewhere; Z66 Do not resuscitate; K57.30 Diverticulosis of large intestine without perforation or abscess without bleeding; K44.9 Diaphragmatic hernia without obstruction or gangrene; Z95.1 Presence of aortocoronary bypass graft; Z79.82 Long term (current) use of aspirin; Z79.899 Other long term (current) drug therapy
CPT/HCPCS: 36415; 70450; 71045; 73502; 74019; 74176; 76705; 80048; 80053; 80069; 81001; 82947; 83605; 83735; 85025; 85027; 87040; 87077; 87086; 87186; 93005; 93010; 96361; 96365; 96375; 97110; 97116; 97162; 97165; 97530; 97535; 99285-25; J0696; J1644; J1885; J2405; J2550; J3010; J3475; J7030; J7060; J7120; P9612